=== PATIENT | female | born 1980 | race African-American/Black ===

== ENCOUNTER → 2017-01-16 | Day surgery (SDC) | payer OTHER ==
[~2017-01-16] VITALS: Ht 162.6 cm; Wt 115.2 kg
--- NOTE | 2017-01-16 18:00 | Operative Report ---
Operative/Inv Procedure Report Surgery Date: 01/16/17 Name of Procedure: re-do bilateral breast reduction Pre-Operative Diagnosis: Breast tkcupxlyyol-qsddelehimi-[id number] Post-Operative Diagnosis: Same Estimated Blood Loss: scant (200) Surgeon/Acid Tank Cleaner: LORRI WILSON,ARI Marie Anesthesia: general endotracheal tube, laryngeal mask airway Operative/Procedure Note Note: Patient was counseled extensively in regards to the procedure the alternatives risks and expected outcomes as relates to her request for surgical intervention to treat symptomatic macromastia. The patient has had previous breast reduction surgery and we talked about the additional risks with a repeat procedure. She fully understood the risk of partial complete loss of nipple areolar complex tissue or sensibility. He'll definitely be postoperative asymmetry as there is preoperatively. We talked about infection bleeding pain and numbness seroma hematoma or problems requiring prolonged wound care based risk of applications to repeat nature. The patient is also over her ideal weight and she was specifically told that further weight loss can result in breasts are too small for her liking his ankle and only be treated with [id number] expense for breast augmentation. The patient states she would like to proceed at her current weight despite this morning. For an inferior pedicle Luna pattern technique and she was told about the insurance company requirements. Once agreed to informed consent was signed. She was taken to the operating room placed supine on the table. Venodyne boots are placed and then general endotracheal anesthesia was established intravenous antibiotics are given. The chest was prepped and draped in usual sterile fashion. Dissection was carried out very carefuly bilaterally due to the nature of previous surgery in the additional scarring for the procedure. This required an increased vigilance nature of the nipple areolar complex on a repeat procedure. She was paid to hemostasis with the use of electrocautery. Flaps were developed and superior medial and lateral segments were removed the patient was temporarily closed improving and is put in the sitting position. Once symmetry was reasonable intramedullary closure was carried out after marking the new nipple areola complexes while in the sitting position.
== END ==
LOC: STS 07:00
DX: N62 Hypertrophy of breast (principal); M54.5 Low back pain; E66.01 Morbid (severe) obesity due to excess calories; Z68.41 Body mass index [BMI] 40.0-44.9, adult
CPT/HCPCS: 81025; 88305; J0131; J1100; J2250; J2405; J2765